=== PATIENT | female | born 1995 | race Asian ===

== ENCOUNTER 2019-10-04 14:26 | Emergency (ER) | payer OTHER ==
[~2019-10-04] VITALS: Ht 162.6 cm; Wt 68.2 kg
[2019-10-04 14:32] VITALS: BP 121/96
== END 2019-10-04 15:36 | disposition home or self-care (01) ==
LOC: EMS 14:34
DX: Z03.818 Encounter for observation for suspected exposure to other biological agents ruled out (principal); R05 Cough; R06.02 Shortness of breath; J02.9 Acute pharyngitis, unspecified
CPT/HCPCS: 87635